=== PATIENT | male | born 1995 | race Caucasian/White ===

== ENCOUNTER 2020-06-25 13:02 | Inpatient (IN) | payer OTHER ==
[~2020-06-25] VITALS: Ht 177.8 cm; Wt 110.7 kg
[2020-06-25 13:21] VITALS: BP 150/87
[2020-06-25] MEDS ORDERED: ZESTRIL5 MG PO (13:24)
[2020-06-25] MEDS ORDERED: METHYLPHENIDATE10 M4 PO (13:25)
[2020-06-25 13:58] LABS: ABSOLUTE MONOCYTES 0.8 thou/uL (0.0-1.2); ABSOLUTE NEUTROPHILS 5.4 thou/uL (1.6-8.1); BASOPHILS 0.4 %; HEMATOCRIT 42.9 % (42.0-52.0); HEMOGLOBIN 14.8 gm/dL (14.0-18.0); LYMPHOCYTES 13.9 %; MCHC 34.6 g/dL (28.0-37.0); MCV 86.8 fL (80.0-100.0); MONOCYTES 10.9 %; MPV 7.5 fl. (7.2-11.1); NUCLEATED RBCS 0 /100WBC; PLATELET COUNT* 196 thou/uL (150-400); POLYS 74.8 %; RBC 4.94 mil/uL (4.50-6.00); RDW-CV 12.5 % (10.5-14.5); WBC 7.3 thou/uL (4.0-11.0)
[2020-06-25 14:12] LABS: CALCIUM 8.4 mg/dL (8.5-10.1); CREATININE 1.1 mg/dL (0.6-1.3); POTASSIUM 3.6 mmol/L (3.5-5.1)
[2020-06-25 14:15] LABS: APTT 24.2 Seconds (25.0-31.3); PROTIME 10.2 Seconds (9.20-11.50)
[2020-06-25 14:22] LABS: ALBUMIN 3.2 g/dL (3.4-5.0); TOTAL BILIRUBIN 0.3 mg/dL (<0.1-1.0); TOTAL PROTEIN 7.6 g/dL (6.4-8.2)
[2020-06-25 14:33] LABS: INFLUENZA A ANTIGEN Negative (Negative); INFLUENZA B ANTIGEN Negative (Negative)
[2020-06-25 15:22] LABS: BE -1.9 mmol/L (-2 to +3); PCO2 31.4 mmHg (35.0-45.0); PO2 64.6 mmHg (75.0-100.0); pH 7.444 (7.340-7.450)
[2020-06-25 19:58] VITALS: BP 121/70
[2020-06-25 20:05] VITALS: BP 125/71
[2020-06-26] VITALS (8 sets, daily range): BP systolic 106–153; BP diastolic 79–90
[2020-06-26 01:16] LABS: URINE BILIRUBIN NEGATIVE (Negative); URINE BLOOD NEGATIVE (Negative); URINE CLARITY CLEAR; URINE COLOR YELLOW; URINE GLUCOSE-RANDOM 1+ (Negative); URINE KETONES NEGATIVE (Negative); URINE LEUKOCYTES-REFLEX NEGATIVE (Negative); URINE NITRITE-REFLEX NEGATIVE (Negative); URINE PROTEIN 1+ (Negative); URINE SPECIFIC GRAVITY >= 1.030 (1.005-1.030); URINE UROBILINOGEN 0.2 E.U./dl (0.2-1.0)
[2020-06-26 05:05] LABS: BE -3.6 mmol/L (-2 to +3); PCO2 30.6 mmHg (35.0-45.0); PO2 66.4 mmHg (75.0-100.0); pH 7.424 (7.340-7.450)
--- NOTE | 2020-06-26 08:24 | EKG ---
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
--- NOTE | 2020-06-26 13:20 | NUR ---
CM SPOKE TO THE PT VIA THE HOSPITAL ROOM PHONE THE PT IS COVID POSITIVE AND CURRENTLY UNDER ENHANCED PRECAUTIONS. PT IS A&O, INDEPENDENT WITH ADL'S, ACTIVE AND WORKS. PT USES 0 DME. D/C PLANNING NEEDS FOR THIS PT ARE TBD AT THIS TIME. PLAN OF CARE FOR THIS PT INCLUDE PT CURRENTLY ON I.V. ABT'S AND REQUIRING 8L O2. CM WILL REMAIN AVAILABLE TO ASSIST WITH D/C PLANNING NEEDED.
[2020-06-26 14:29] LABS: ABSOLUTE LYMPHOCYTES 0.8 thou/uL (0.8-5.3); ABSOLUTE MONOCYTES 0.6 thou/uL (0.0-1.2); ABSOLUTE NEUTROPHILS 6.8 thou/uL (1.6-8.1); BASOPHILS 0.1 %; HEMATOCRIT 39.4 % (42.0-52.0); HEMOGLOBIN 13.6 gm/dL (14.0-18.0); LYMPHOCYTES 10.3 %; MCH 30.5 pg (26.0-34.0); MCHC 34.5 g/dL (28.0-37.0); MCV 88.4 fL (80.0-100.0); MONOCYTES 6.8 %; MPV 7.7 fl. (7.2-11.1); NUCLEATED RBCS 0 /100WBC; PLATELET COUNT* 224 thou/uL (150-400); POLYS 82.8 %; RBC 4.46 mil/uL (4.50-6.00); RDW-CV 12.6 % (10.5-14.5); WBC 8.2 thou/uL (4.0-11.0)
[2020-06-26 14:42] LABS: CALCIUM 8.1 mg/dL (8.5-10.1); CREATININE 1.2 mg/dL (0.6-1.3); MAGNESIUM 1.8 mg/dL (1.8-2.4); PHOSPHORUS* 2.2 mg/dL (2.5-4.9); POTASSIUM 3.9 mmol/L (3.5-5.1); TOTAL BILIRUBIN 0.3 mg/dL (<0.1-1.0); TOTAL PROTEIN 6.7 g/dL (6.4-8.2)
--- NOTE | 2020-06-26 20:02 | NUR ---
ASSESSMENT DOCUMENTED. MEDS GIVEN PER E-MAR. IV PATENT. NO REPORTS OF PAIN THIS SHIFT. PT HAD SEVERAL EPISODES OF SOA THIS SHIFT, DR NOTIFIED. ORDERS RECIEVED. ISOLATION MAINTAINED. PT ON 8L HIGH FLOW NC THIS SHIFT.
[2020-06-26 21:31] LABS: CALCIUM 8.6 mg/dL (8.5-10.1)
[2020-06-26 21:34] LABS: MAGNESIUM 2.6 mg/dL (1.8-2.4); PHOSPHORUS* 2.6 mg/dL (2.5-4.9)
[2020-06-27 04:00] VITALS: BP 148/90
[2020-06-27 05:15] LABS: HEMATOCRIT 40.4 % (42.0-52.0); HEMOGLOBIN 13.8 gm/dL (14.0-18.0); MCH 30.6 pg (26.0-34.0); MCHC 34.3 g/dL (28.0-37.0); MCV 89.3 fL (80.0-100.0); MPV 7.1 fl. (7.2-11.1); RBC 4.52 mil/uL (4.50-6.00); RDW-CV 12.5 % (10.5-14.5); WBC 7.2 thou/uL (4.0-11.0)
[2020-06-27 05:52] LABS: CALCIUM 8.7 mg/dL (8.5-10.1); CREATININE 1.2 mg/dL (0.6-1.3); MAGNESIUM 2.6 mg/dL (1.8-2.4); POTASSIUM 3.8 mmol/L (3.5-5.1); TOTAL BILIRUBIN 0.5 mg/dL (<0.1-1.0)
[2020-06-27 07:30] VITALS: BP 132/83
[2020-06-27 09:45] LABS: BE 0 mmol/L (-2 to +3); PCO2 39.6 mmHg (35.0-45.0); pH 7.409 (7.340-7.450)
[2020-06-27 12:00] VITALS: BP 135/78
[2020-06-27 15:47] LABS: CALCIUM 8.6 mg/dL (8.5-10.1); CREATININE 1.1 mg/dL (0.6-1.3); MAGNESIUM 2.5 mg/dL (1.8-2.4); POTASSIUM 3.7 mmol/L (3.5-5.1)
--- NOTE | 2020-06-27 18:48 | NUR ---
PT SLEPT MOST OF SHIFT. ASSESSMENT DOCUMENTED. MEDS GIVEN PER -OCT. PT UP TO 13L HIGH FLOW NASAL CANNULA AFTER BREATHING TREATMENT. NOTIFIED, ORDERS RECIEVED. PT NOW ON BIPAP. PT NPO EXCEPT SIPS OF WATER. NO REPORRS OF PAIN. ISOLATION MAINTAINED.
[2020-06-27 20:54] VITALS: BP 121/71
[2020-06-28] VITALS (8 sets, daily range): BP systolic 117–149; BP diastolic 60–92
--- NOTE | 2020-06-28 08:17 | NUR ---
PT IS ABLE TO COMMUNICATE HIS NEEDS TO STAFF EFFECTIVELY. HE HAS DENIED THE NEED FOR PAIN MEDICATION UP TO THIS TIME. 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 HE HAS BEEN NPO, EXCEPT FOR SIPS WITH MEDS AND SOME ICE CHIPS; INTAKE TOLERATED WELL. LABS AND ABGs LATER THIS AM.
[2020-06-28 08:36] LABS: BE -3.1 mmol/L (-2 to +3); PCO2 40.6 mmHg (35.0-45.0); PO2 69.8 mmHg (75.0-100.0); pH 7.355 (7.340-7.450)
[2020-06-28 10:09] LABS: HEMATOCRIT 42.6 % (42.0-52.0); HEMOGLOBIN 14.9 gm/dL (14.0-18.0); MCH 30.7 pg (26.0-34.0); MCV 87.7 fL (80.0-100.0); MPV 7.2 fl. (7.2-11.1); RBC 4.86 mil/uL (4.50-6.00); RDW-CV 12.4 % (10.5-14.5); WBC 9.3 thou/uL (4.0-11.0)
[2020-06-28 10:24] LABS: ABSOLUTE LYMPHOCYTES 0.7 thou/uL (0.8-5.3); ABSOLUTE MONOCYTES 0.9 thou/uL (0.0-1.2); ABSOLUTE NEUTROPHILS 7.9 thou/uL (1.6-8.1); BASOPHILS 0.1 %; LYMPHOCYTES 7.4 %; MCH 30.7 pg (26.0-34.0); MCHC 34.9 g/dL (28.0-37.0); MCV 87.8 fL (80.0-100.0); MONOCYTES 9.2 %; MPV 7.5 fl. (7.2-11.1); NUCLEATED RBCS 0 /100WBC; PLATELET COUNT* 311 thou/uL (150-400); POLYS 83.3 %; RBC 4.89 mil/uL (4.50-6.00); RDW-CV 12.6 % (10.5-14.5); WBC 9.4 thou/uL (4.0-11.0)
[2020-06-28 10:39] LABS: CREATININE 1.1 mg/dL (0.6-1.3); MAGNESIUM 2.7 mg/dL (1.8-2.4); POTASSIUM 3.7 mmol/L (3.5-5.1); TOTAL BILIRUBIN 0.7 mg/dL (<0.1-1.0); TOTAL PROTEIN 8.2 g/dL (6.4-8.2)
--- NOTE | 2020-06-28 11:40 | NUR ---
Pt received from Telemetry unit, transferred to ICU d/t increased SOA and RR following use of BSC for BM. States "I just couldn't recover from the activity." Once patient transferred to ICU bed, placed on BIPAP, and settled into position pt reports "feeling better." Plan to intubate was shared with patient, and patient refused stating "I'm feeling good right now, I don't want to be intubated." RR 12-14, O2 sats 97%. HR 67, BP 149/87. Dr. Dockery just saw patient and relayed to nursing that patient would like some food. Will continue to monitor.
--- NOTE | 2020-06-28 17:29 | NUR ---
Pt off BIPAP since 1709 to eat. Poor appetite today: ate peaches at lunch and currently eating gelatin for supper. On HFC @ 15 L when off BIPAP, sats low to mid 90s currently with RR upper teens to mid 20s. Pt reports he is still weak, and not tolerating activity. Has been awake since tranferring to ICU at 1100. Pleasant and cooperative. On BIPAP most of shift except 1310 to 1450, and since 1709. VSS. Has not voided since coming to ICU, but states "I'm holding off trying it for right now." Denies need to void at this time. Will continue to monitor.
[2020-06-29] VITALS (17 sets, daily range): BP systolic 118–151; BP diastolic 69–94
[2020-06-29 04:24] LABS: HEMOGLOBIN 13.7 gm/dL (14.0-18.0); MCH 30.2 pg (26.0-34.0); MCHC 34.4 g/dL (28.0-37.0); MCV 87.8 fL (80.0-100.0); MPV 7.3 fl. (7.2-11.1); RBC 4.55 mil/uL (4.50-6.00); RDW-CV 12.7 % (10.5-14.5); WBC 8.1 thou/uL (4.0-11.0)
[2020-06-29 04:46] LABS: CALCIUM 8.7 mg/dL (8.5-10.1); CREATININE 1.1 mg/dL (0.6-1.3); MAGNESIUM 2.8 mg/dL (1.8-2.4); POTASSIUM 3.6 mmol/L (3.5-5.1)
[2020-06-29 05:38] LABS: BE 1.8 mmol/L (-2 to +3); PO2 90.3 mmHg (75.0-100.0); pH 7.456 (7.340-7.450)
--- NOTE | 2020-06-29 05:54 | NUR ---
PT REMAINS ON BIPAP THROUGH THE NIGHT, TOLERATES WELL. DOES NOT TOLERATE MUCH MOVEMENT. TOOK TIME TO CATCH HIS BREATH WHEN USING BEDPAN. DENIES PAIN. NON PRODUCTIVE COUGH NOTICED. OTHERWISE VITALS STABLE, AFEBRILE. BMX1, LOOSE AND SMALL. UNEVENTFUL NIGHT. CALL LIGHT WITHIN REACH.
--- NOTE | 2020-06-29 16:39 | NUR ---
PT RESTING IN BED THROUGHOUT SHIFT. PT TRANSITIONED TO HFNC 10L THIS AFTERNOON. PT UP TO BSC WITH SB ASSIST. DESATS TO 80S WITH ACTIVITY BUT RECOVERS QUICKLY. VOIDING PER URINAL,GOOD UO. NSR ON MONITOR. DRINKING WATER BUT POOR APPETITE. UPDATED ON PT STATUS PT REMAINS IN ENHANCED PRECAUTIONS PER FRANCISCO
[2020-06-30] VITALS (13 sets, daily range): BP systolic 116–136; BP diastolic 59–88
--- NOTE | 2020-06-30 04:43 | NUR ---
ASSUMED PATIENT CARE AT 1900. ASSESSMENTS COMLPETED CHARTED. CARDIAC MONITORING IN PLACE. PATIENT ANXIOUS AT TIMES DURING SHIFT. ANXIETY MANAGED WITH MEDS AND THERAPEUTIC COMMUNICATION. TOLERATED BIPAP WELL. PATIENT HAD ONE BM DURING SHIFT, BM WAS LOOSE. FALL PRECAUTIONS IN PLACE FOR PATIENT SAFETY. BED LOCKED AND IN LOWEST POSTION. CLWR.
[2020-06-30 14:09] LABS: HEMATOCRIT 39.8 % (42.0-52.0); MCH 30.8 pg (26.0-34.0); MCHC 35.1 g/dL (28.0-37.0); MCV 87.8 fL (80.0-100.0); MPV 7.3 fl. (7.2-11.1); NUCLEATED RBCS 0 /100WBC; PLATELET COUNT* 347 thou/uL (150-400); RBC 4.54 mil/uL (4.50-6.00); RDW-CV 12.4 % (10.5-14.5); WBC 9.4 thou/uL (4.0-11.0)
[2020-06-30 14:24] LABS: CALCIUM 8.7 mg/dL (8.5-10.1); CREATININE 1.2 mg/dL (0.6-1.3); MAGNESIUM 2.6 mg/dL (1.8-2.4); POTASSIUM 3.7 mmol/L (3.5-5.1)
[2020-06-30 14:49] LABS: ABSOLUTE LYMPHOCYTES 0.8 thou/uL (0.8-5.3); ABSOLUTE NEUTROPHILS 7.6 thou/uL (1.6-8.1); PLATELET ESTIMATE ADEQUATE
--- NOTE | 2020-06-30 19:11 | NUR ---
ASSESSMENT CHARTED PT ON MIN SEDATION UNABLE TO WEAN DO TO RENAL STATUS DIALYSIS STARTED TODAY AT 1800 PRESSURE SOFT LEVO STARTED AT [employer]G TOLERATING WELL NOW
--- NOTE | 2020-06-30 19:26 | NUR ---
PT SITTING UP IN BED WATCHING TV. ON HIFLO NC @ 13L. INSTRUCTED TO WEAR BIPAP AT NOC. LS DIM. SOA W/ ACTIVITY. PROD COUGH W/ SMALL AMNT OF BLOODY SPUTUM. PT DOES REPORT FEELING BETTER. INSTRUCTED TO UTILIZE IS. SR-SA ON MONITOR W/ PACS. VSS. NO EDEMA. CONT TO HAVE DIARRHEA BUT PT REPORTS IMPROVEMENT. POOR APPETITE. WILLING TO DRINK CLEAR ENSURE AND WATER. VOID PER COMMODE. ADEQUATE AMNT PER PCT. UP W/ SBA TO RECLINER AND COMMODE WHILE ON HIFLO. DOES GET SLIGHTLY TACHYCARDIC AND TACHYPNIC BUT IS ABLE TO PRACTICE NONPHARMALOGICAL RELAXATION TECHNIQUES TO RETURN TO CURRENT BASELINE. PIV X2. SL OTHER THAN ABX. CONT SSI. EDUCATION R/T BUT NOT LIMITED TO POC, TX, AND MEDICATIONS. , ARABELLA, GIVEN FULL UPDATE VIA PHONE THIS MORNING. Patrick CHEEK RN
[2020-07-01] VITALS (12 sets, daily range): BP systolic 110–130; BP diastolic 62–76
[2020-07-01 04:15] LABS: ABSOLUTE LYMPHOCYTES 0.8 thou/uL (0.8-5.3); ABSOLUTE MONOCYTES 0.6 thou/uL (0.0-1.2); ABSOLUTE NEUTROPHILS 7.4 thou/uL (1.6-8.1); BASOPHILS 0.2 %; HEMATOCRIT 38.7 % (42.0-52.0); HEMOGLOBIN 13.3 gm/dL (14.0-18.0); LYMPHOCYTES 8.8 %; MCH 29.8 pg (26.0-34.0); MCHC 34.4 g/dL (28.0-37.0); MCV 86.7 fL (80.0-100.0); MONOCYTES 7.1 %; MPV 7.7 fl. (7.2-11.1); NUCLEATED RBCS 0 /100WBC; PLATELET COUNT* 329 thou/uL (150-400); POLYS 83.9 %; RBC 4.46 mil/uL (4.50-6.00); RDW-CV 12.5 % (10.5-14.5); WBC 8.8 thou/uL (4.0-11.0)
[2020-07-01 04:31] LABS: ALBUMIN 2.4 g/dL (3.4-5.0); CALCIUM 8.1 mg/dL (8.5-10.1); MAGNESIUM 2.2 mg/dL (1.8-2.4); POTASSIUM 4.3 mmol/L (3.5-5.1); TOTAL BILIRUBIN 0.5 mg/dL (<0.1-1.0); TOTAL PROTEIN 6.9 g/dL (6.4-8.2)
--- NOTE | 2020-07-01 04:52 | NUR ---
ASSUMED PATIENT CARE AT 1900. PATIENT ALERT AND ORIENTED TIMES FOUR. NO COMPLAINTS OF PAIN OR DISCOMFORT NOTED. REMAINS IN ISOLATION IN NEGATIVE PRESSURE ROOM. COMPLIANT WITH BIPAP USE THROUGHOUT THE NIGHT. RN ASSESSMENTS COMPLETED DOCUMENTED.
--- NOTE | 2020-07-01 18:24 | NUR ---
PATIENT REMAINS A&O X 4, PLEASANT AND COOPERATIVE WITH CARES. DENIES PAIN. EXTREME SOB NOTED WITH MINIMAL EXCERTION. O2 DECREASED TO 10L FROM 13L. TOLERATES WELL WHILE SITTING STILL BUT HAS TO BE INCREASED BACK TO 13L WITH ACTIVITY. DENIES CHEST PAIN. DIARRHEA X 1 TODAY. DENIES NAUSEA AND VOMITING. AT PATIENT WINDOW MOST OF THE DAY. NO FURTHER CONCERNS AT THIS TIME. WILL CONTINUE TO MONITOR AND CARE PER PLAN OF CARE.
[2020-07-02] VITALS (12 sets, daily range): BP systolic 111–134; BP diastolic 61–97
[2020-07-02 04:08] LABS: ABSOLUTE LYMPHOCYTES 0.9 thou/uL (0.8-5.3); ABSOLUTE MONOCYTES 0.6 thou/uL (0.0-1.2); ABSOLUTE NEUTROPHILS 7.8 thou/uL (1.6-8.1); BASOPHILS 0.1 %; HEMATOCRIT 40.1 % (42.0-52.0); HEMOGLOBIN 13.9 gm/dL (14.0-18.0); LYMPHOCYTES 9.7 %; MCH 30.1 pg (26.0-34.0); MCHC 34.8 g/dL (28.0-37.0); MCV 86.5 fL (80.0-100.0); MONOCYTES 6.9 %; MPV 7.4 fl. (7.2-11.1); NUCLEATED RBCS 0 /100WBC; PLATELET COUNT* 334 thou/uL (150-400); POLYS 83.3 %; RBC 4.64 mil/uL (4.50-6.00); RDW-CV 12.3 % (10.5-14.5); WBC 9.4 thou/uL (4.0-11.0)
[2020-07-02 04:59] LABS: ALBUMIN 3.2 g/dL (3.4-5.0); MAGNESIUM 2.5 mg/dL (1.8-2.4); POTASSIUM 4.7 mmol/L (3.5-5.1); TOTAL BILIRUBIN 0.6 mg/dL (<0.1-1.0); TOTAL PROTEIN 7.4 g/dL (6.4-8.2)
--- NOTE | 2020-07-02 12:58 | CON ---
[address] [address] CONSULTATION Name: ALEXANDER MOREL Room: [address] IN M.R.#: [id number] Admission: 06/25/20 Attend Phys: Jeremie Dockery, Discharge: Date of : 89 Report #: [id number] THIS REPORT FOR: //name// cc: Osito Mac Vincent R. DO ~ DATE OF SERVICE: 06/26/2020 CONSULT REQUESTED BY: Dr. Dockery. INDICATION FOR CONSULTATION: COVID-19. HISTORY OF PRESENT ILLNESS: This is a 24-year-old gentleman. He was diagnosed with COVID-19 five days ago. His symptoms began initially on the . The patient was treated as an outpatient with prednisone as well as azithromycin and p.r.n. albuterol. The patient, however, continued to decline. He was checking his O2 saturation at home and had declined to around 89-90% on room air. The patient was also having fever, chills, increasing cough, although not much sputum and increasing shortness of breath. The patient was also having diarrhea and therefore eventually came to the Emergency Room. Since then, the patient has been started on dexamethasone. I look at her records and I recommended remdesivir as well, which has also been started. However, despite this therapy there is a significant decline in the patient's condition since yesterday. The patient is now needing 8 liters of oxygen to maintain O2 saturation in the low 90s. He remains short of breath on rest. He is tachypneic, respiratory rate is 24 to 25. He also is having a high-grade fever at this time with a temperature of 39.4. He has mild swelling of lower extremities. His CTA chest did not show clots. It however shows extensive infiltrates. There is concern regarding possible early developing ARDS. There are no clots. The patient answers to the negative for 12 other questions for review of systems except that he says he has had some body aches, earlier reports having had nausea and vomiting as well. PAST MEDICAL HISTORY: ADHD, hypertension. He was on lisinopril. HOME MEDICATIONS: He was on lisinopril and methylphenidate at home. ALLERGIES: No known drug allergies. SOCIAL HISTORY: Lifetime nonsmoker. No known history of heavy alcohol use or illegal drug use, note that he does take methylphenidate prescribed to him as above. FAMILY HISTORY: There is no pertinent family history. PHYSICAL EXAMINATION: [place] [address] CONSULTATION Name: ALEXANDER MOREL Room: [address]#: [id number] Admission: 06/25/20 Attend Phys: Jeremie Dockery, Discharge: Date of : 89 Report #: [id number] GENERAL: Alert, awake and oriented. He is short of breath at rest. His respiratory rate is 24-25. VITAL SIGNS: His heart rate is 100, temperature 39.4. O2 saturation in the low 90s and 8 liters nasal cannula, blood pressure 145/90. HEENT: Head is normocephalic and atraumatic. Pupils are equal and reactive. He appears to have a narrow airway. NECK: Does not show raised JVP, asymmetry, mass or lymph nodes. CHEST: Symmetrical expansion on inspection and palpation. On auscultation, breath sounds are bilaterally equal, but decreased. Expirations are prolonged. I do not hear any added sounds. HEART: Regular. There is mild tachycardia. There is no murmur. ABDOMEN: Soft and nontender. EXTREMITIES: Lower extremities, trace edema, no calf tenderness. SKIN: Dry and intact. NEUROLOGICAL: Moves all extremities bilaterally equally and spontaneously with no focal deficit identified. LABORATORY DATA: The patient's CTA chest is as described above. His lab work including a positive COVID-19 antigen in [facility] reviewed. I repeated labs now stat and reviewed them as well. These are in [facility], D-dimer was not elevated. ASSESSMENT AND PLAN: Acute hypoxemic respiratory failure: His body mass index is elevated to 37.3. It appears likely that he also has underlying obstructive sleep apnea. Would recommend placing him on a BiPAP while asleep and p.r.n. For this purpose I recommend that he moved to a negative pressure room. Recommend continue to titrate oxygen to O2 saturation in the low 90s. COVID-19: Considering significant hypoxemia, I increased his dexamethasone dose further. We will continue with remdesivir. I discussed with the patient regarding risks and benefits of giving him 2 units of convalescent plasma. After discussion, he agreed to proceed with the same and the same is therefore also ordered. Pulmonary infiltrates: I will also cover him with broad-spectrum antibiotics for a secondary bacterial infection. Note that the patient recently received azithromycin as an outpatient. Therefore, I discontinued his azithromycin now, ordered doxycycline. We will continue with Zosyn. Mild fluid overload: We will give him one dose of Lasix with convalescent plasma, will subsequently continue to follow and plan to run him on the tray drier side. Bronchospasm: I feel there is a component of this as well, which is part of the reason I also increased dexamethasone. We will also go ahead and start him on [address] [place] [address] CONSULTATION Name: ALEXANDER MOREL Room: [address] IN M.R.#: [id number] Admission: 06/25/20 Attend Phys: Jeremie Dockery, Discharge: Date of : 89 Report #: [id number] Brovana. Once he is in the negative pressure room he does have an albuterol inhaler. Deep venous thrombosis prophylaxis, Lovenox. Clostridium difficile prophylaxis, Florastor. ADHD. I did not resume his methylphenidate at this time. We will see if it is possible to go without the medication a few days if needed, certainly we can start, we will watch closely. Past medical history of hypertension. The patient is critically ill at this time. Total time spent providing critical care to this patient today is 39 minutes. <ELECTRONICALLY SIGNED> By: Bandar Monique MD 07/02/20 1258 1542 [id number] Monique MD /nt
[2020-07-02 13:29] LABS: URINE BILIRUBIN NEGATIVE (Negative); URINE BLOOD NEGATIVE (Negative); URINE CLARITY CLEAR; URINE COLOR YELLOW; URINE GLUCOSE-RANDOM NEGATIVE (Negative); URINE KETONES NEGATIVE (Negative); URINE LEUKOCYTES-REFLEX NEGATIVE (Negative); URINE NITRITE-REFLEX NEGATIVE (Negative); URINE PROTEIN NEGATIVE (Negative); URINE SPECIFIC GRAVITY >= 1.030 (1.005-1.030); URINE UROBILINOGEN 0.2 E.U./dl (0.2-1.0)
--- NOTE | 2020-07-02 14:00 | NUR ---
ICU rounds: Covid positive. A&O. Doing ok. 11L HF NC. Bipap prn
--- NOTE | 2020-07-02 16:46 | NUR ---
PT REMAINS ON 11L O2 HF NC.PT HAS DYSPNEA WHEN GETTING UP TO THE BSC BUT RECOVERS QUICKLY.PT IS ALBA. 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 UPDATED BY PHONE ON PT CONDITION.ENHANCED PRECAUTIONS MAINTAINED FOR COVID.PT OFFERED BATH BUT WAS FEELING TO WINDED AND DIZZY WHEN UP.UA COLLECTED.CALL LIGHT AND FALL PRECAUTIONS IN PLACE.WILL CONTINUE TO MONITOR FOR DURATION OF SHIFT.
[2020-07-03] VITALS (9 sets, daily range): BP systolic 121–136; BP diastolic 65–86
--- NOTE | 2020-07-03 06:05 | NUR ---
O2 TITRATED DOWN TO 9L HIGH FLOW, TOLERATING WELL. OTHERWISE UNEVENTFUL NIGHT. PT DENIES PAIN. SLEPT THROUGH THE NIGHT. 400CC UOP, NO BM. SINUS NICOLA ON THE MONITOR. CALL LIGHT WITHIN REACH.
--- NOTE | 2020-07-03 14:11 | NUR ---
ICU rounds: Pt down to 7Lo2. Transfer to [facility] unit
--- NOTE | 2020-07-03 14:19 | NUR ---
PT TITRATED DOWN TO 7L O2 HF NC.DOWNGRADED TO MED SURG STATUS.ISOLATION MAINTAINED FOR ENHANCED PRECAUTIONS.PT TO TRANSFER TO ROOM 110.REPORT CALLED TO MOE MARQUIS.ALL PERSONAL BELONGINGS PACKED AND TAKEN WITH PT.PT WHEELED TO ROOOM 110 BY NURSING STAFF.
--- NOTE | 2020-07-03 18:51 | NUR ---
PT TRANSFERRED TO ROOM 110 FROM ICU AT APPROX 1500, NO C/O PAIN OR SHORTNESS OF BREATH, PT AOX4, ON 7L SATTING 90'S. PT GOAL IS TO KEEP SATS ABOVE 90% AND HAVE A SHOWER/INCREASE ACTIVITY TODAY. AM ASSESSMENT CHARTED, MEDS PER MAR, HOURLY ROUNDING OBSERVED, FALL PRECAUTIONS IN PLACE, CALL LIGHT W/IN REACH, PT BEING DOWNGRADED TO M/S STATUS.
[2020-07-04] VITALS (7 sets, daily range): BP systolic 121–150; BP diastolic 60–86
--- NOTE | 2020-07-04 08:15 | NUR ---
ASSUMED PT'S CARE @ 1900. PT ALERT AND ORIENTED. VSS ON 7L HFNC. MEDS GIVEN PER EMAR. PT SLEPT OFF AND ON THIS SHIFT. STB ASSIST TO THE BATHROOM. PT DENIED PAIN. BM NOTED THIS SHIFT PER PT. CALL LIGHT WITHIN REACH. WILL CONTINUE TO MONITOR.
[2020-07-04 09:49] LABS: HEMATOCRIT 43.9 % (42.0-52.0); MCH 29.9 pg (26.0-34.0); MCHC 34.2 g/dL (28.0-37.0); MCV 87.7 fL (80.0-100.0); NUCLEATED RBCS 0 /100WBC; PLATELET COUNT* 345 thou/uL (150-400); RBC 5.01 mil/uL (4.50-6.00); RDW-CV 12.7 % (10.5-14.5); WBC 12.1 thou/uL (4.0-11.0)
[2020-07-04 10:06] LABS: CALCIUM 8.8 mg/dL (8.5-10.1); MAGNESIUM 2.4 mg/dL (1.8-2.4); POTASSIUM 4.6 mmol/L (3.5-5.1); TOTAL BILIRUBIN 0.6 mg/dL (<0.1-1.0); TOTAL PROTEIN 7.4 g/dL (6.4-8.2)
[2020-07-04 10:23] LABS: ABSOLUTE LYMPHOCYTES 1.6 thou/uL (0.8-5.3); ABSOLUTE MONOCYTES 0.2 thou/uL (0.0-1.2); ABSOLUTE NEUTROPHILS 10.3 thou/uL (1.6-8.1); ATYPICAL LYMPHS 5 %; METAMYELOCYTES 4 %; PLATELET ESTIMATE ADEQUATE
--- NOTE | 2020-07-04 11:45 | NUR ---
PRIMETIME ROUNDS: WEANING O2, TODAY DOWN FROM 7L TO 4L.
--- NOTE | 2020-07-04 19:16 | NUR ---
ASSUMED PT CARE AT 0730, PT AOX4, NO C/O PAIN OR SHORTNESS OF BREATH, PT INITIALLY ON 7L NC, SLOWLY TITRATED DOWN TO RA TODAY AND SATTING 96%. PT GETTING UP MORE TO BATHROOM AND DOESN'T FEEL DIZZY WHEN GETTING UP ANYMORE. PT GOAL IS TO KEEP SATS ABOVE 90% AND REMAIN FREE FROM FALLS. AM ASSESSMENT CHARTED, MEDS PER OCT, HOURLY ROUNDING OBSERVED, CALL LIGHT W/IN REACH, PT NOW UP AD RAKESH TO BATHROOM.
[2020-07-05 04:20] VITALS: BP 123/70
--- NOTE | 2020-07-05 06:47 | NUR ---
PT SLEPT ON AND OFF OVERNIGHT WITHOUT COMPLAINTS. ROOM AIR SATS 91-95%. TELE SR SB. HAS DENIED PAIN OR PROBLEMS. SLIV. ACCUCHECK 118. REMAINS ON COVID ISOLATION. ABLE TO USE CALL LITE AND MAKE NEEDS KNOWN. UP AD RAKESH IN ROOM. NO LABS THIS MORNING. HOPEFUL FOR DISCHARGE HOME TODAY.
[2020-07-05 08:00] VITALS: BP 156/69
[2020-07-05] MEDS ORDERED: BUSPIRONE HCL5 MG PO (08:35)
[2020-07-05] MEDS ORDERED: PREDNISONE 10 M10 MG PO (08:35)
[2020-07-05 11:18] VITALS: BP 156/69
[2020-07-05 11:23] VITALS: BP 156/69
--- NOTE | 2020-07-05 12:13 | NUR ---
PT DISCHARGED HOME LEFT WITH IV AND TRAVEL SERVICE CONSULTANT DC'D NO QUESTIONS OR CONCERNS PT WAS STILL PRETTY SOA BUT ON ROOM AIR
== END 2020-07-05 12:32 | disposition home or self-care (01) | DRG 871 ==
LOC: M.ERS 13:02 → M.TBA-ER 15:46 → M.2W 15:46 → M.ICU 06-28 10:52 → M.ORTHSURG 07-03 14:51
PROVIDERS: Internal Medicine; Internal Medicine Critical Care Medicine; Nurse Practitioner Family; Pediatrics; ADMIT Family Medicine; ATTEND Family Medicine
DX: A41.89 Other specified sepsis (principal); J96.01 Acute respiratory failure with hypoxia; U07.1 COVID-19; J12.89 Other viral pneumonia; I10 Essential (primary) hypertension; E87.70 Fluid overload, unspecified; E66.01 Morbid (severe) obesity due to excess calories; K76.0 Fatty (change of) liver, not elsewhere classified; F90.9 Attention-deficit hyperactivity disorder, unspecified type; F41.9 Anxiety disorder, unspecified; Z82.49 Family history of ischemic heart disease and other diseases of the circulatory system; Z68.35 Body mass index [BMI] 35.0-35.9, adult; Z79.899 Other long term (current) drug therapy

== ENCOUNTER → 2020-08-14 | Outpatient (CLI) | payer OTHER ==
[~2020-08-14] MED LIST: BUSPIRONE HCL5 MG PO; METHYLPHENIDATE10 M4 PO; PREDNISONE 10 M10 MG PO; ZESTRIL5 MG PO
== END ==
LOC: M.RAD 14:25
PROVIDERS: ATTEND Internal Medicine Critical Care Medicine
DX: R91.8 Other nonspecific abnormal finding of lung field (principal); U07.1 COVID-19

== ENCOUNTER → 2020-10-27 | Outpatient (CLI) | payer OTHER | LOC: M.RAD 16:05 | PROVIDERS: ATTEND Internal Medicine Critical Care Medicine | DX: U07.1 COVID-19 (principal); R91.8 Other nonspecific abnormal finding of lung field; R06.02 Shortness of breath; J98.01 Acute bronchospasm ==

== ENCOUNTER → 2020-10-28 | Outpatient (CLI) | payer OTHER ==
--- NOTE | 2020-11-04 00:03 | PF ---
[address] [address] PULMONARY FUNCTION REPORT Name: ALEXANDER MOREL [id number] Admission: 10/28/20 Attend Phys: Bandar Monique MD Discharge: Date of : 89 Report #: [id number] THIS REPORT FOR: cc: Oisto Mac Vincent R. DO ~ Bandar Monique MD DATE OF SERVICE: 10/28/2020 The FEV1/FVC ratio is decreased to 67% with an FVC normal at 91%, but the FEV1 is decreased to 74%. The UFF70-82 is also decreased to 34%. After the administration of a bronchodilator, there is no significant increase in the patient's forced vital capacity or FEV1. The patient's post-bronchodilator FEV1 is noted to be 3.49 liters. The patient's WGJ82-13, however, does increase by 102% after the administration of a bronchodilator. The total lung capacity is decreased to 71%. The residual volume is not available. The DLCO as adjusted for hemoglobin is decreased to 59%. IMPRESSION: 1. Moderate obstruction with some evidence of reversibility as the KJK70-93 does increase significantly after the administration of a bronchodilator. 2. There is restriction present with the total lung capacity decreased to 71%. 3. The DLCO as adjusted for hemoglobin is decreased to 59%. <ELECTRONICALLY SIGNED> By: Bandar Monique MD 11/04/20 0003 2100 [id number] Monique MD /justino
== END ==
LOC: M.PUL 11:00
PROVIDERS: ATTEND Internal Medicine Critical Care Medicine
DX: R06.02 Shortness of breath (principal)

== ENCOUNTER → 2020-11-13 | Outpatient (CLI) | payer OTHER ==
--- NOTE | 2020-12-09 08:43 | SLEEP ---
[address] [address] SLEEP STUDY REPORT Name: ALEXANDER MOREL Room: [facility]#: [id number] Admission: 11/13/20 Attend Phys: Bandar Monique MD Discharge: Date of : 89 Report #: [id number] THIS REPORT FOR: cc: Osito Mac Vincent R. DO Pervez, Adeel MD ~ This study has been reviewed in its entirety by a board certified sleep specialist DATE OF SERVICE: 11/15/2020 HOME SLEEP STUDY INDICATION FOR SLEEP STUDY: Hypersomnia/excessive daytime sleepiness. INTERPRETATION: Total duration of the study is 561 minutes. During this time duration, we recorded multiple sleep-related respiratory events. These included 19 obstructive apneas in addition to 92 hypopneas with an overall apnea-hypopnea index of 15.1. Body position data indicates the patient was lying supine throughout the sleep study. We did also record multiple desaturations. Overall, the patient spent 26.2 minutes below an O2 saturation of 90%, out of which 12.8 minutes were spent with an O2 saturation less than 88%. Mean heart rate was 77. IMPRESSION: 1. Obstructive sleep apnea with an apnea-hypopnea index of 15.1. The patient is noted to be lying supine throughout the sleep study. 2. There is mild nocturnal hypoxemia. The patient spent 26.2 minutes below an O2 saturation of 90%, out of which 12.8 minutes were spent with an O2 saturation less than 88%. RECOMMENDATIONS: 1. We will initially place the patient on a CPAP auto titrated device with a CPAP pressure range of 5-15 cm of water with heated humidity and mask per patient's preference. We will follow response. In case the patient does not have an adequate response to therapy, then I will in that case consider bringing the patient to the sleep lab and performing a positive airway pressure titration in the sleep lab. 2. As above, there is mild nocturnal hypoxemia as well. This is likely to resolve with CPAP therapy; however, in case we do not do an in-lab sleep study later as above, then I will consider obtaining a nocturnal pulse oximetry with a CPAP in place to verify that his O2 saturation is [place] [address] SLEEP STUDY REPORT Name: ALEXANDER MOREL Room: [facility]#: [id number] Admission: 11/13/20 Attend Phys: Bandar Monique MD Discharge: Date of : 89 Report #: [id number] with it. 3. Recommend weight loss. 4. Recommend avoiding driving or other activities requiring vigilance, if drowsy. This entire sleep study was reviewed by a board certified sleep physician. <ELECTRONICALLY SIGNED> By: Bandar Monique MD 12/09/20 0843 1930 1953AMD юлия Vu
== END ==
LOC: M.PUL 09:00
PROVIDERS: ATTEND Internal Medicine Critical Care Medicine
DX: G47.33 Obstructive sleep apnea (adult) (pediatric) (principal); R09.02 Hypoxemia; G47.10 Hypersomnia, unspecified

== ENCOUNTER → 2021-01-06 | Outpatient (CLI) | payer OTHER ==
--- NOTE | 2021-01-19 08:18 | PF ---
[address] [address] PULMONARY FUNCTION REPORT Name: ALEXANDER MOREL Room: [facility].#: [id number] Admission: 01/06/21 Attend Phys: Antoine Jimenez DO Discharge: Date of : 89 Report #: [id number] THIS REPORT FOR: cc: Osito Mac Vincent R. DO Pervez, Adeel MD ~ DOC #: [id number] Bandar Monique MD DATE OF VISIT: 01/06/2021 PULMONARY FUNCTION TEST FINDINGS: The FEV1/FVC ratio is normal at 77% with an FVC normal at 92% and FEV1 normal at 86%. The FEF 25-75 is also normal at 71%. After the administration of a bronchodilator, there is no significant increase in any of these values. The patient's post-bronchodilator FEV1 is 3.96 liters. The total lung capacity is normal at 86% with the residual volume decreased to 59%. The DLCO as adjusted for hemoglobin is decreased to 71%. The patient's post-bronchodilator FEV1 is noted to be 3.96 liters. The flow volume loop is concave upwards. IMPRESSION: 1. Spirometry is normal. Upward concavity of the flow volume loop is noted. Minimal obstructive lung disease is present, can lead to this picture, but this could also be a normal variant. 2. The lung volumes are normal with the exception of residual volume decreased to 59%. This could also be a normal variant or could indicate mild restriction. 3. The DLCO as adjusted for hemoglobin is decreased to 71%. Bandar Monique MD AP/SUB <ELECTRONICALLY SIGNED> By: Bandar Monique MD 01/19/21 0818 2059 [id number] Monique MD /nt
== END ==
LOC: M.PUL 08:55
PROVIDERS: ATTEND Family Medicine
DX: R06.02 Shortness of breath (principal); Z86.16 Personal history of COVID-19